=== PATIENT | female | born 1945 | race Caucasian/White ===

== ENCOUNTER 2016-09-23 12:17 | Outpatient (CLI) | payer MEDICARE | END 2016-09-23 12:18 | disposition home or self-care (01) | DX: R53.83 Other fatigue (principal); R00.2 Palpitations; C81.70 Other Hodgkin lymphoma, unspecified site ==

== ENCOUNTER 2017-01-29 07:27 | Outpatient (CLI) | payer MEDICARE | END 2017-01-29 07:28 | disposition home or self-care (01) | DX: E78.2 Mixed hyperlipidemia (principal); I10 Essential (primary) hypertension; E55.9 Vitamin D deficiency, unspecified; C85.90 Non-Hodgkin lymphoma, unspecified, unspecified site ==

== ENCOUNTER 2017-03-09 08:05 | Outpatient (CLI) | payer MEDICARE ==
--- NOTE | 2017-03-09 14:45 | DEXA Report ---
DEXA SCAN: 03/09/2017 CLINICAL INDICATION: Postmenopausal. TECHNIQUE: Dual energy x-ray absorptiometry (DXA) was performed on a [employer] system. Regions measured are the AP spine, femoral neck, and, if needed, forearm. COMPARISON: None. In accordance with the International Society for Clinical Densitometry (ISCD) guidelines, data from previous exams may be reanalyzed using current recommendations and techniques. This is done to allow a more accurate basis for comparison with the current study. FINDINGS: The data for the lumbar spine is as follows: REGION BMD (g/cm/cm) T-SCORE Z-SCORE L1 0.927 -1.7 -1.1 L2 1.124 -0.6 0.0 L3 1.249 0.4 1.0 L4 1.299 0.8 1.5 TOTAL 1.157 -0.2 0.4 NOTE: All evaluable vertebrae are used for classification. The data for the hip is as follows: REGION BMD (g/cm/cm) T-SCORE Z-SCORE Neck 0.872 -1.2 -0.1 TOTAL 1.136 1.0 1.8 NOTE: The femoral neck or total proximal femur, whichever is lowest, is used for classification. IMPRESSION: THE WHO CLASSIFICATION BASED ON THE INTERNATIONAL REFERENCE STANDARD IS OSTEOPENIA (REFERENCE LEFT FEMORAL NECK). THE FRACTURE RISK IS INCREASED. RECOMMENDATION: Patients with diagnosis of osteoporosis or osteopenia should have regular bone mineral density assessment. For those eligible for Medicare, routine testing is allowed once every 2 years. Testing frequency can be increased for patients who have rapidly progressing disease or for those who are receiving medical therapy to restore bone mass. COMMENT: World Health Organization (WHO) definitions for osteoporosis and osteopenia: NORMAL BMD: T-score at -1.0 or higher, fracture risk is low. OSTEOPENIA BMD: T-score between -1.0 and -2.5, fracture risk is increased. OSTEOPOROSIS BMD: T-score at -2.5 or lower, fracture risk high. National Osteoporosis Foundation recommends: 1. Obtain adequate dietary calcium (at least 1200 mg per day) and vitamin D (400 -800 international units per day). 2. Participate, as appropriate, in regular weightbearing and muscle- strengthening exercise. 3. Avoid tobacco use and reduce alcohol and caffeine intake. 4. For more detailed information see the website at www.NOF.org. MTDD
== END 2017-03-09 08:06 | disposition home or self-care (01) ==
LOC: DI 08:05
PROVIDERS: ATTEND Physician Assistant Medical
DX: Z13.820 Encounter for screening for osteoporosis (principal); M85.88 Other specified disorders of bone density and structure, other site; Z78.0 Asymptomatic menopausal state
CPT/HCPCS: 77080

== ENCOUNTER 2017-03-09 08:06 | Outpatient (CLI) | payer MEDICARE ==
--- NOTE | 2017-03-11 08:14 | Mammography Report ---
DIGITAL SCREENING MAMMOGRAM: 03/09/2017 CLINICAL INDICATION: A 71-year-old with history of lymphoma left breast for screening. COMPARISON: 02/2016, 02/2015, 02/2014, 02/2013, 02/2012, 02/2011, 07/2009, 07/2008 TECHNIQUE: Routine CC and MLO projections were obtained of the breasts. FINDINGS: The breasts again demonstrate scattered fibroglandular densities bilaterally. Biopsy phu er in the left upper central breast is stable. There is a possible new nodule in the left lower cent ral breast. There is possible new architectural distortion in the right outer breast. Further evalu ation with bilateral spot compression views and possible ultrasound is recommended. IMPRESSION: INCOMPLETE EXAMINATION. RECOMMENDATION: Additional evaluation of both breasts as above. BIRADS CATEGORY 0 - INCOMPLETE. STANDARD QUALIFYING STATEMENTS 1. This examination was reviewed with the aid of Computer-Aided Detection (CAD). 2. A negative or benign imaging report should not delay biopsy if clinically suspicious findings are present. Consider surgical consultation if warranted. More than 5% of cancers are not identified by i maging. 3. Dense breasts may obscure an underlying neoplasm. JOB #: [id number] EXT JOB #:[id number]
== END 2017-03-09 08:07 | disposition home or self-care (01) ==
LOC: DI 08:06
PROVIDERS: ATTEND Physician Assistant Medical
DX: Z12.31 Encounter for screening mammogram for malignant neoplasm of breast (principal); R92.8 Other abnormal and inconclusive findings on diagnostic imaging of breast
CPT/HCPCS: 77067

== ENCOUNTER 2017-03-25 10:59 | Outpatient (CLI) | payer MEDICARE ==
--- NOTE | 2017-03-25 14:18 | Ultrasound Report ---
LEFT BREAST ULTRASOUND: 03/25/2017 CLINICAL INDICATION: Persistent nodule left breast. TECHNIQUE: Real-time scanning was performed with pharmaceutical sales representative static images obtained. FINDINGS: Ultrasound of the left lower central breast was performed. At the 6 o'clock position, 4 cm from the nipple, there is a 0.8 x 0.7 x 0.4 cm nodule with irregular margins. No definite associated vascularity is seen. The appearance is suspicious. Biopsy is recommen ded. The nodule appears amenable to ultrasound-guided core needle biopsy. IMPRESSION: SUSPICIOUS ABNORMALITY, WITH A SOLID NODULE CORRELATING WITH THE MAMMOGRAPHIC ABNORMALIT Y. RECOMMENDATION: BIOPSY. THE NODULE APPEARS AMENABLE TO ULTRASOUND-GUIDED CORE NEEDLE BIOPSY. BIRADS CATEGORY 4-SUSPICIOUS ABNORMALITY. Results and recommendations discussed with the patient at the time of the examination, and called to Veronique Butler PA-C, on 03/25/2017. Biopsy is scheduled for 04/08/2017 at 12:15 p.m. JOB #: [id number] EXT JOB #:[id number]
--- NOTE | 2017-03-25 15:18 | Mammography Report ---
DIGITAL DIAGNOSTIC BILATERAL MAMMOGRAM: 03/25/2017 CLINICAL INDICATION: Possible right distortion, left nodule on screening. TECHNIQUE: Bilateral true lateral and spot compression views. COMPARISON: 03/09/2017, 03/17/2016, 03/06/2015, 03/28/2014, 03/07/2013, 2011, 03/22/2012, 04/01/2011, 03/26/2011, 08/08/2009, 07/20/2008. FINDINGS: The breasts again demonstrate scattered fibroglandular densities bilaterally. The possible distortion in the right outer breast does not persist on additional compression. No underlying mass lesion is identified. The nodule in the left inferior breast persists on additional compression, measuring 9 mm. No associated calcifications are seen. Please also refer to left breast ultrasound of the same day. IMPRESSION: SUSPICIOUS ABNORMALITY, WITH A SOLID NODULE ON ULTRASOUND CORRELATING WITH THE LEFT MAMMOGRAPHIC ABNORMALITY. RECOMMENDATION: BIOPSY. THE NODULE APPEARS AMENABLE TO ULTRASOUND-GUIDED CORE NEEDLE BIOPSY. BIRADS CATEGORY 4-SUSPICIOUS ABNORMALITY. Results and recommendations discussed with the patient and called to Veronique Butler PA-C, on 03/25/2017. Biopsy is scheduled for 04/08/2017 at 12:15 p.m. STANDARD QUALIFYING STATEMENTS 1. This examination was reviewed with the aid of Computer-Aided Detection (CAD). 2. A negative or benign imaging report should not delay biopsy if clinically suspicious findings are present. Consider surgical consultation if warranted. More than 5% of cancers are not identified by imaging. 3. Dense breasts may obscure an underlying neoplasm. JOB #: [id number] EXT JOB #: [id number] [facility]ITAL[facility]
== END 2017-03-25 11:00 | disposition home or self-care (01) ==
LOC: DI 10:59
PROVIDERS: ATTEND Physician Assistant Medical
DX: N63 Unspecified lump in breast (principal)
CPT/HCPCS: 76642; G0204; 77066

== ENCOUNTER 2017-04-08 12:00 | Outpatient (CLI) | payer MEDICARE ==
[2017-04-08] MEDS ORDERED: BUFFERED LIDOCAINE 10 ML SYRINGE IU ONE (12:53)
[2017-04-08] MEDS ORDERED: BUPIVACAINE 0.5%-EPI 1:200000 PF 30 ML VIAL SUBQ ONE (12:53)
[2017-04-08 14:27] VITALS: BP 146/65
--- NOTE | 2017-04-09 08:33 | Ultrasound Report ---
ULTRASOUND-GUIDED CORE NEEDLE BIOPSY LEFT BREAST: 04/08/2017 CLINICAL INDICATION: A 7 mm nodule 6 o'clock position left breast. FINDINGS: Informed consent was obtained. Using standard aseptic technique, both 1% buffered lidocain e and Marcaine were injected into the left breast for local anesthesia. A small amara was made in the skin with a #11 blade. A 12-gauge Celero vacuum-assisted device was used to obtain three specimens. A Celero marker was placed into the biopsy cavity under ultrasound guidance. The patient was taken to a separate mammography machine and a two view digital mammogram was performed, documenting the marke r in the expected location and a small postbiopsy hematoma. The wound was dressed and ice applied. The patient was observed for approximately 15 minutes, then wa s discharged from [facility] in stable condition following instructions on wound care and obt aining biopsy results. The tissue was sent for histologic analysis. IMPRESSION: ULTRASOUND-GUIDED BIOPSY OF THE LEFT BREAST. AN ADDENDUM WILL BE MADE TO THIS REPORT WHEN PATHOLOGY IS REVIEWED TO ESTABLISH CONCORDANCE. JOB #: [id number] EXT JOB #:[id number]
== END 2017-04-08 12:01 | disposition home or self-care (01) ==
LOC: DI 12:00
PROVIDERS: ATTEND Physician Assistant Medical
DX: N63 Unspecified lump in breast (principal); R92.8 Other abnormal and inconclusive findings on diagnostic imaging of breast; L85.9 Epidermal thickening, unspecified
CPT/HCPCS: 19083; G0206; 88305

== ENCOUNTER 2017-06-03 08:20 | Outpatient (CLI) | payer MEDICARE ==
[2017-06-03 12:51] LABS: ALBUMIN/GLOBULIN RATIO 1.7 (1.0-2.2); BILIRUBIN,TOTAL 0.7 mg/dL (0.2-1.0); CALCIUM 9.4 mg/dL (8.5-10.3); CREATININE 1.2 mg/dL (0.4-1.0); POTASSIUM 4.1 mmol/L (3.5-5.0); TOTAL PROTEIN 6.7 g/dL (6.7-8.2)
[2017-06-03 13:04] LABS: HEMOGLOBIN A1C 0.52 g/dL
== END 2017-06-03 08:21 | disposition home or self-care (01) ==
LOC: LAB.F 08:20
PROVIDERS: ATTEND Internal Medicine
DX: N18.9 Chronic kidney disease, unspecified (principal); R73.09 Other abnormal glucose
CPT/HCPCS: 36415; 80053; 83036

== ENCOUNTER 2017-07-30 07:22 | Outpatient (CLI) | payer MEDICARE ==
[2017-07-30 11:43] LABS: BASOPHILS % (AUTO) 0.5 %; EOSINOPHILS # (AUTO) 0.2 10^3/uL (0.0-0.7); EOSINOPHILS % (AUTO) 2.5 %; HCT - HEMATOCRIT 39.9 % (37.0-47.0); HGB - HEMOGLOBIN 13.3 g/dL (12.0-16.0); LYMPHOCYTES # (AUTO) 2.3 10^3/uL (1.5-3.5); LYMPHOCYTES % (AUTO) 34.6 %; MEAN CORPUSCULAR HEMOGLOBIN 29.4 pg (27.0-31.0); MEAN CORPUSCULAR HGB CONC 33.4 g/dL (32.0-36.0); MEAN CORPUSCULAR VOLUME 88.1 fL (81.0-99.0); MONOCYTES # (AUTO) 0.8 10^3/uL (0.0-1.0); MONOCYTES % (AUTO) 12.1 %; NEUTROPHILS # (AUTO) 3.3 10^3/uL (1.5-6.6); NEUTROPHILS % (AUTO) 50.3 %; RED BLOOD COUNT 4.53 10^6/uL (4.20-5.40); RED CELL DISTRIBUTION WIDTH 13.6 % (12.0-15.0); UNCORRECTED WHITE BLOOD COUNT 6.5 x10^3/uL; WHITE BLOOD COUNT 6.5 x10^3/uL (4.8-10.8)
== END 2017-07-30 07:23 | disposition home or self-care (01) ==
LOC: LAB.F 07:22
PROVIDERS: ATTEND Internal Medicine
DX: R53.83 Other fatigue (principal)
CPT/HCPCS: 36415; 84443; 85025

== ENCOUNTER 2017-07-31 12:51 | Outpatient (CLI) | payer MEDICARE | END 2017-07-31 12:52 | disposition home or self-care (01) | LOC: DI 12:51 | PROVIDERS: ATTEND Internal Medicine | DX: R00.2 Palpitations (principal); R53.83 Other fatigue; I10 Essential (primary) hypertension | CPT/HCPCS: 93306 ==

== ENCOUNTER 2017-10-21 13:53 | Outpatient (CLI) | payer MEDICARE ==
--- NOTE | 2017-10-21 14:51 | Mammography Report ---
DIAGNOSTIC LEFT MAMMOGRAM: 10/21/2017 CLINICAL INDICATION: History of benign biopsy. COMPARISON: 04/08/2017, 03/25/2017, 03/09/2017 03/17/2016, 03/06/2015, 03/28/2014, 03/07/2013, 03/29/2012, 03/22/2012, 03/26/2011. TECHNIQUE: Left CC, MLO, true lateral views. FINDINGS: The left breast demonstrates scattered fibroglandular densities. Coarse and punctate, typically benign calcifications are present. Biopsy marker in the inferior left breast is stable. Associated nodule has resolved in the interval. Biopsy marker in the left upper central breast is stable. No suspicious masses, clustered microcalcifications, or regions of architectural distortion are identified. IMPRESSION: BENIGN FINDINGS. RECOMMENDATION: Routine annual screening, next due in February 2018, unless otherwise clinically indicated. BIRADS CATEGORY 2 - benign findings. STANDARD QUALIFYING STATEMENTS: 1. This examination was reviewed with the aid of Computer-Aided Detection (CAD). 2. A negative or benign imaging report should not delay biopsy if clinically suspicious findings are present. Consider surgical consultation if warranted. More than 5% of cancers are not identified by imaging. 3. Dense breasts may obscure an underlying neoplasm. TD: 10/21/2017 14:45
== END 2017-10-21 13:54 | disposition home or self-care (01) ==
LOC: DI 13:53
PROVIDERS: ATTEND Internal Medicine
DX: R92.8 Other abnormal and inconclusive findings on diagnostic imaging of breast (principal)

== ENCOUNTER 2018-02-13 05:48 | Emergency (ER) | payer MEDICARE ==
--- NOTE | 2018-02-13 06:20 | ED Physician Documentation ---
History of Present Illness - Stated complaint Stated Complaint: R SHOULDER/NECK PX - Chief complaint Chief Complaint: Ext Problem - History obtained from History obtained from: Patient - History of Present Illness Timing: How many days ago (2-3) Pain level now: 5 Improved by: no ameliorating factors Worsened by: no exacerbating factors - Additonal information Additional information: patient complains of two or three days of pain in her right shoulder, right aspect of neck, and RUE to FA. noted rash this morning Review of Systems Constitutional: reports: Reviewed and negative Cardiac: reports: Reviewed and negative Respiratory: reports: Reviewed and negative Skin: reports: Rash Musculoskeletal: reports: Neck pain, Joint pain PD PAST MEDICAL HISTORY - Past Medical History Past Medical History: Yes Cardiovascular: Hypertension, High cholesterol Respiratory: None Endocrine/Autoimmune: None GI: None : None HEENT: Chronic vision loss Psych: None Musculoskeletal: Osteoarthritis Derm: None - Past Surgical History Past Surgical History: Yes General: Cholecystectomy Derm: Other - Present Medications Home Medications: Ambulatory Orders Medication Instructions Recorded Confirmed Acetaminophen [Pain Reliever] 325 mg PO Q4HR PRN 03/07/13 02/13/18 Lisinopril [Zestril] 10 mg PO DAILY 03/07/13 02/13/18 Pravastatin Sodium [Pravachol] 40 mg PO HS 03/07/13 02/13/18 Cholecalciferol (Vitamin D3) 5,000 units PO DAILY 05/08/14 02/13/18 [Vitamin D3] Acyclovir 800 mg PO 5XD #34 tablet 02/13/18 oxyCODONE [Roxicodone] 5 mg PO Q4-6H PRN #14 tablet 02/13/18 - Allergies Allergies/Adverse Reactions: Allergies Allergy/AdvReac Type Severity Reaction Status Date / Time penicillin G Allergy Intermediate Rash Verified 02/13/18 05:54 - Social History Does the pt smoke?: No Smoking Status: Never smoker Does the pt drink ETOH?: No Does the pt have substance abuse?: No - Immunizations Immunizations are current?: Yes - POLST Patient has POLST: No PD ED PE NORMAL - Vitals Vital signs reviewed: Yes - General General: Alert and oriented X 3, No acute distress, Well developed/nourished - Neck Neck: Supple, no meningeal sign, No bony TTP - Respiratory Respiratory: No respiratory distress, Clear bilaterally - Extremities Extremities: No edema PD ED PE EXPANDED - Derm SKin visual: 1 - rash (clusters of erythematous papulovesicular exanthem) Results - Vitals Vitals: Vital Signs - 24 hr 02/13/18 02/13/18 05:51 06:44 Temperature 36.7 C 36.7 C Heart Rate 70 66 Respiratory 18 18 Rate Blood Pressure 133/62 H 126/88 H O2 Saturation 100 100 Oxygen O2 Source Room air PD MEDICAL DECISION MAKING - ED course Complexity details: considered differential, d/w patient - Sepsis Event Vital Signs: Vital Signs - 24 hr 02/13/18 02/13/18 05:51 06:44 Temperature 36.7 C 36.7 C Heart Rate 70 66 Respiratory 18 18 Rate Blood Pressure 133/62 H 126/88 H O2 Saturation 100 100 Oxygen O2 Source Room air Departure - Departure Disposition: 01 Home, Self Care Clinical Impression: Shingles Condition: Good Instructions: ED Shingles Prescriptions: Acyclovir 800 mg PO 5XD #34 tablet oxyCODONE [Roxicodone] 5 mg PO Q4-6H PRN #14 tablet PRN Reason: Pain Discharge Date/Time: 02/13/18 06:44
[2018-02-13] MEDS ORDERED: ACYCLOVIR 200 MG CAPSULE PO STA (06:30)
[2018-02-13 06:46] VITALS: BP 126/88
== END 2018-02-13 06:44 | disposition home or self-care (01) ==
LOC: ED 05:48
DX: B02.9 Zoster without complications (principal); I10 Essential (primary) hypertension; E78.00 Pure hypercholesterolemia, unspecified; M19.90 Unspecified osteoarthritis, unspecified site
CPT/HCPCS: 99283; A9270

== ENCOUNTER 2018-06-02 07:44 | Outpatient (CLI) | payer MEDICARE ==
[2018-06-02 11:09] LABS: BASOPHILS % (AUTO) 0.6 %; EOSINOPHILS # (AUTO) 0.1 10^3/uL (0.0-0.7); EOSINOPHILS % (AUTO) 2.4 %; HGB - HEMOGLOBIN 12.8 g/dL (12.0-16.0); LYMPHOCYTES # (AUTO) 1.8 10^3/uL (1.5-3.5); MEAN CORPUSCULAR HEMOGLOBIN 30.2 pg (27.0-31.0); MEAN CORPUSCULAR HGB CONC 34.1 g/dL (32.0-36.0); MEAN CORPUSCULAR VOLUME 88.6 fL (81.0-99.0); MEAN PLATELET VOLUME 11.1 fL (7.9-10.8); MONOCYTES # (AUTO) 0.6 10^3/uL (0.0-1.0); MONOCYTES % (AUTO) 11.8 %; NEUTROPHILS # (AUTO) 2.8 10^3/uL (1.5-6.6); NEUTROPHILS % (AUTO) 52.2 %; PLT - PLATELET COUNT 58 10^3/uL (130-450); RED BLOOD COUNT 4.23 10^6/uL (4.20-5.40); RED CELL DISTRIBUTION WIDTH 13.3 % (12.0-15.0); WHITE BLOOD COUNT 5.4 x10^3/uL (4.8-10.8)
[2018-06-02 11:22] LABS: ALBUMIN 4.6 g/dL (3.2-5.5); ALBUMIN/GLOBULIN RATIO 1.7 (1.0-2.2); ALKALINE PHOSPHATASE 71 IU/L (42-121); ALT ALANINE AMINOTRANSFERASE 25 IU/L (10-60); AST ASPARTATE AMINOTRANSFERASE 25 IU/L (10-42); BILIRUBIN,TOTAL 0.7 mg/dL (0.2-1.0); BUN - BLOOD UREA NITROGEN 23 mg/dL (6-20); CALCIUM 9.6 mg/dL (8.5-10.3); CARBON DIOXIDE - CO2 26 mmol/L (21-32); CHLORIDE 103 mmol/L (101-111); CHOLESTEROL 183 mg/dL; CREATININE 1.2 mg/dL (0.4-1.0); GFR - MDRD 44 (>89); GLUCOSE 109 mg/dL (70-100); HDL CHOLESTEROL 62 mg/dL; LDL CHOLESTEROL,CALCULATED 90 mg/dL; LDL/HDL RATIO 1.5 (<4.4); SODIUM 138 mmol/L (135-145); TOTAL PROTEIN 7.3 g/dL (6.7-8.2); VLDL CHOLESTEROL 31 mg/dL
== END 2018-06-02 07:45 | disposition home or self-care (01) ==
LOC: LAB.F 07:44
PROVIDERS: ATTEND Physician Assistant Medical
DX: E55.9 Vitamin D deficiency, unspecified (principal); Z79.899 Other long term (current) drug therapy; N18.9 Chronic kidney disease, unspecified; R73.01 Impaired fasting glucose; I10 Essential (primary) hypertension; E78.2 Mixed hyperlipidemia
CPT/HCPCS: 36415; 80053; 80061; 82306; 83721; 84443; 85025

== ENCOUNTER 2018-06-07 14:32 | Outpatient (CLI) | payer MEDICARE ==
[2018-06-07 18:39] LABS: BASOPHILS % (AUTO) 0.6 %; EOSINOPHILS # (AUTO) 0.1 10^3/uL (0.0-0.7); EOSINOPHILS % (AUTO) 2.1 %; LYMPHOCYTES # (AUTO) 1.8 10^3/uL (1.5-3.5); LYMPHOCYTES % (AUTO) 32.2 %; MEAN CORPUSCULAR HEMOGLOBIN 29.8 pg (27.0-31.0); MEAN CORPUSCULAR HGB CONC 33.5 g/dL (32.0-36.0); MEAN CORPUSCULAR VOLUME 88.7 fL (81.0-99.0); MEAN PLATELET VOLUME 10.7 fL (7.9-10.8); MONOCYTES % (AUTO) 18.7 %; NEUTROPHILS # (AUTO) 2.6 10^3/uL (1.5-6.6); NEUTROPHILS % (AUTO) 46.4 %; PLT - PLATELET COUNT 50 10^3/uL (130-450); RED BLOOD COUNT 4.35 10^6/uL (4.20-5.40); RED CELL DISTRIBUTION WIDTH 13.1 % (12.0-15.0); WHITE BLOOD COUNT 5.6 x10^3/uL (4.8-10.8)
[2018-06-07 18:44] LABS: GLUCOSE, URINE (UA) NEGATIVE (NEGATIVE); KETONES,URINE (UA) TRACE mg/dL (NEGATIVE); LEUKOCYTE ESTERASE, URINE NEGATIVE (NEGATIVE); NITRITE,URINE NEGATIVE (NEGATIVE); OCCULT BLOOD,URINE NEGATIVE (NEGATIVE); PH,URINE 5.5 PH (5.0-7.5); PROTEIN,URINE NEGATIVE (NEGATIVE); UROBILINOGEN,URINE 0.2 (NORMAL) E.U./dL (NORMAL)
[2018-06-07 18:48] LABS: BILIRUBIN,URINE NEGATIVE (NEGATIVE); CLARITY,URINE CLEAR (CLEAR); ICTOTEST,URINE NEGATIVE
[2018-06-08 12:42] LABS: HEPATITIS C ANTIBODY NON-REACTIVE (NON-REACTIVE)
== END 2018-06-07 14:33 | disposition home or self-care (01) ==
LOC: LAB.R 14:32
PROVIDERS: ATTEND Physician Assistant Medical
DX: D69.6 Thrombocytopenia, unspecified (principal); Z13.818 Encounter for screening for other digestive system disorders; N18.9 Chronic kidney disease, unspecified
CPT/HCPCS: 81001; 81003; 85025; 86803; 87086

== ENCOUNTER 2018-06-21 14:48 | Outpatient (CLI) | payer MEDICARE ==
--- NOTE | 2018-06-23 09:59 | Mammography Report ---
Reason: BILAT SCREEN w BRANDON Procedure Date: 06/21/2018 Accession Number: [id number] / [id number] Procedure: GIN - Screening Mammo w/Brandon CPT Code: FULL RESULT: EXAM: Screening Mammo w/Brandon DATE: 06/21/2018 3:09 PM CLINICAL HISTORY: BILAT SCREEN w BRANDON TECHNIQUE: Bilateral CC and MLO breast views COMPARISON: Mammogram 10/21/2017 FINDINGS: There are scattered fibroglandular densities. There are benign-appearing calcifications. No dominant mass, architectural distortion, or concerning cluster microcatheter calcifications is seen. IMPRESSION: BI-RADS Category 2. Benign findings. Recommend annual screening mammogram. STANDARD QUALIFYING STATEMENTS: 1. This examination was not reviewed with the aid of Computer-Aided Detection (CAD). 2. A negative or benign imaging report should not delay biopsy if clinically suspicious findings are present. Consider surgical consultation if warrented. More than 5% of cancers are not identified by imaging. 3. Dense breasts may obscure an underlying neoplasm. 4. This examination was reviewed with the aid of 3D breast imaging (tomosynthesis).
== END 2018-06-21 14:49 | disposition home or self-care (01) ==
LOC: DI 14:48
PROVIDERS: ATTEND Physician Assistant Medical
DX: Z12.31 Encounter for screening mammogram for malignant neoplasm of breast (principal)
CPT/HCPCS: 77063; 77067

== ENCOUNTER 2018-06-21 14:49 | Outpatient (CLI) | payer MEDICARE ==
--- NOTE | 2018-06-22 10:51 | Ultrasound Report ---
Reason: THROMBOCYTOPENIA, LYMPHOMA, CKD STAGE 3 Procedure Date: 06/21/2018 Accession Number: [id number] / [id number] Procedure: US - Abdomen Complete CPT Code: FULL RESULT: EXAM: ABDOMEN ULTRASOUND EXAM DATE: 06/21/2018 05:18 PM. CLINICAL HISTORY: Thrombocytopenia, lymphoma, CKD stage 3. COMPARISON: PET CT SKULL BASE TO MID THIGH 12/08/2016 10:28 AM ABDOMEN/PELVIS W/ 08/05/2016 11:[address] SKULL BASE TO M 12/08/2016 9:37 AM. TECHNIQUE: Real-time scanning was performed with static images obtained. FINDINGS: Liver: Liver parenchyma is heterogeneous and moderately hyperechoic. Evaluation of the liver parenchyma is limited due to hyperechoic liver parenchyma. In the right liver, there is an oblong hyperechoic region with some degree of shadowing but no vascularity measuring 1.9 x 0.9 x 1.4 cm. This finding is present in the subcapsular right liver. 15.8 cm. Main portal vein flow: Hepatopetal. Gallbladder: Surgically absent. Biliary System: Common bile duct measures 8.8 mm. No intrahepatic or extrahepatic ductal dilatation. Pancreas: Not well seen due to bowel gas and fatty liver. Kidneys: Bilateral renal cortical thinning. Right: 9.2 cm longitudinally. Normal. No contour-deforming mass, stones, or hydronephrosis. Left: 10.5 cm longitudinally. Normal. No contour-deforming mass, stones, or hydronephrosis. Spleen: 12.2 x 4.8 x 4.9 cm. Normal in size and echotexture. Aorta and Inferior Vena Cava: Unremarkable. Other: Study limited by body habitus and bowel gas. IMPRESSION: 1. Moderately fatty liver. 1.9 x 0.9 x 1.4 cm echogenic, avascular region in the subcapsular right liver. No accompanying CT abnormality seen on the studies performed 12/08/2016 or 08/05/2016. Potentially, this could represent dystrophic calcifications. Further evaluation with contrast-enhanced CT or MRI can be performed as necessary. No intrahepatic bile duct dilation. 2. Gallbladder surgically absent. Prominent common bile duct measuring 8.8 mm. No common bile duct stone. Limited visualization of the otherwise grossly unremarkable pancreas. 3. Bilateral renal cortical thinning. No mass. RADIA
== END 2018-06-21 14:50 | disposition home or self-care (01) ==
LOC: DI 14:49
PROVIDERS: ATTEND Physician Assistant Medical
DX: K76.0 Fatty (change of) liver, not elsewhere classified (principal); Z90.49 Acquired absence of other specified parts of digestive tract
CPT/HCPCS: 76700

== ENCOUNTER 2019-05-06 16:11 | Outpatient (CLI) | payer MEDICARE | END 2019-05-06 16:12 | disposition home or self-care (01) | LOC: RT 16:11 | PROVIDERS: ATTEND Internal Medicine Gastroenterology | DX: I48.0 Paroxysmal atrial fibrillation (principal) | CPT/HCPCS: 93005 ==

== ENCOUNTER 2019-05-07 09:41 | Outpatient (CLI) | payer MEDICARE ==
[2019-05-07 10:18] LABS: BASOPHILS % (AUTO) 0.6 %; EOSINOPHILS # (AUTO) 0.2 10^3/uL (0.0-0.7); EOSINOPHILS % (AUTO) 3.7 %; HGB - HEMOGLOBIN 12.1 g/dL (12.0-16.0); LYMPHOCYTES # (AUTO) 1.5 10^3/uL (1.5-3.5); LYMPHOCYTES % (AUTO) 29.8 %; MEAN CORPUSCULAR HEMOGLOBIN 26.8 pg (27.0-31.0); MEAN CORPUSCULAR HGB CONC 31.8 g/dL (32.0-36.0); MEAN CORPUSCULAR VOLUME 84.3 fL (81.0-99.0); MEAN PLATELET VOLUME 10.6 fL (7.9-10.8); MONOCYTES # (AUTO) 0.8 10^3/uL (0.0-1.0); MONOCYTES % (AUTO) 16.4 %; NEUTROPHILS # (AUTO) 2.5 10^3/uL (1.5-6.6); NEUTROPHILS % (AUTO) 49.1 %; PLT - PLATELET COUNT 102 10^3/uL (130-450); RED BLOOD COUNT 4.51 10^6/uL (4.20-5.40); RED CELL DISTRIBUTION WIDTH 14.5 % (12.0-15.0); WHITE BLOOD COUNT 5.1 x10^3/uL (4.8-10.8)
[2019-05-07 10:32] LABS: ALBUMIN 4.1 g/dL (3.2-5.5); ALBUMIN/GLOBULIN RATIO 1.5 (1.0-2.2); BILIRUBIN,TOTAL 0.9 mg/dL (0.2-1.0); CREATININE 1.2 mg/dL (0.4-1.0); TOTAL PROTEIN 6.8 g/dL (6.7-8.2)
--- NOTE | 2019-05-08 15:49 | CT Report ---
Reason: HX OF NON HODGKIN LYMPHOMA Procedure Date: 05/07/2019 Accession Number: [id number] / [id number] Procedure: CT - SOFT TISSUE NECK W CPT Code: FULL RESULT: EXAM: CT SOFT TISSUE NECK WITH CONTRAST. EXAM DATE: 05/07/2019 11:16 AM. HISTORY: History of non-Hodgkin lymphoma. No onset weight loss. COMPARISONS: Concurrent CT scan chest abdomen pelvis, prior PET/CT imaging study 12/08/2016. TECHNIQUE: Routine soft tissue neck CT protocol. Reconstructions: Coronal and sagittal. IV contrast: OPTI 320 80ML. In accordance with CT protocol optimization, one or more of the following dose reduction techniques were utilized for this exam: automated exposure control, adjustment of mA and/or KV based on patient size, or use of iterative reconstructive technique. Findings: Relevant images are indicated (image number, series number). Limited evaluation intracranial contents are unremarkable. Again seen 2.1 cm right parotid mass, present previously by PET CT imaging study 12/08/2016. Diffuse adenopathy bilateral neck, all spaces, airway patent, prominent bilateral supraclavicular fossa adenopathy present. Findings are progressive since prior PET/CT imaging study which included views of the neck soft tissues. Subcutaneous low-density mass seen previously by PET CT imaging study overlying the right shoulder at that time measured 2.1 cm, appears smaller now measuring 1.2 cm with minimal residual low density component suggestive of a drained sebaceous cyst. Impressions: 1. Progressive diffuse adenopathy of the neck consistent with progressive lymphoma compared with PET/CT imaging study 12/08/2016 as described. 2. Suspected benign mass of the right parotid gland, stable since 2017. RADIA
--- NOTE | 2019-05-10 01:48 | CT Report ---
Reason: HX OF NON HODGKIN LYMPHOMA Procedure Date: 05/07/2019 Accession Number: [id number] / [id number] Procedure: CT - Abdomen/Pelvis W CPT Code: FULL RESULT: EXAM: CT ABDOMEN AND PELVIS EXAM DATE: 05/07/2019 11:16 AM. CLINICAL HISTORY: HX OF NON HODGKIN LYMPHOMA. COMPARISONS: ABDOMEN/PELVIS W/ 08/05/2016 11:[address] SKULL BASE TO M 12/08/2016 9:37 AM. TECHNIQUE: Routine helical CT imaging was performed through the abdomen and pelvis. IV contrast: OPTI 320 80ML. Enteric contrast: Yes. Reconstructions: Coronal and sagittal. In accordance with CT protocol optimization, one or more of the following dose reduction techniques were utilized for this exam: automated exposure control, adjustment of mA and/or KV based on patient size, or use of iterative reconstructive technique. FINDINGS: Lung Bases: There is minimal interstitial infiltrate in the region of the lingula. There are no pleural effusions at the lung bases. There are borderline sized lymph nodes in the right hilum and middle mediastinum. These were incompletely evaluated on the CT scan of the abdomen. Liver: The liver is grossly unremarkable. Gallbladder/Bile Ducts: Resected Spleen: There is splenomegaly when compared to the prior PET/CT study. The spleen measures 18.5 so meters anteriorly posteriorly, 10.7 cm transversely, and 17.7 on meters. Inferiorly. Pancreas: Normal. Adrenal Glands: Normal. Kidneys: Normal. No masses or hydronephrosis. Peritoneal Cavity/Bowel: There is lymphadenopathy in the yajaira hepatis and paraceliac region. These lymph nodes measure up to 18 mm in short axis diameter. There is para-aortic and paracaval lymphadenopathy also new compared to the prior study. These lymph nodes measure up to 24 mm in short axis diameter. There is by iliac and inguinal lymphadenopathy. These lymph nodes measure up to 25 mm in short axis diameter. The stomach, small bowel, and colon are unremarkable. The appendix is normal. Pelvic Organs: Normal. The bladder and visualized pelvic organs are within normal limits. Vasculature: No aneurysms or other significant abnormality. Bones: There are degenerative changes of the spine and the hips. Other: None. IMPRESSION: 1. Interval development of abdominal, pelvic, and inguinal lymphadenopathy. 2. Splenomegaly. 3. Prior cholecystectomy. 4. No inflammatory changes of the bowel. RADIA
--- NOTE | 2019-05-10 15:26 | CT Report ---
Reason: HX OF NON HODGKIN LYMPHOMA Procedure Date: 05/07/2019 Accession Number: [id number] / [id number] Procedure: CT - CHEST W CPT Code: FULL RESULT: EXAM: CT CHEST EXAM DATE: 05/07/2019 11:16 AM. CLINICAL HISTORY: History of non-Hodgkin's lymphoma. New onset weight loss. COMPARISONS: CHEST W/ 11/28/2016 6:[address] SKULL BASE TO M 12/08/2016 9:37 AM. TECHNIQUE: Routine helical CT imaging was performed through the chest. IV contrast: 80 cc of Optiray 320. Reconstructions: Coronal and sagittal. In accordance with CT protocol optimization, one or more of the following dose reduction techniques were utilized for this exam: automated exposure control, adjustment of mA and/or KV based on patient size, or use of iterative reconstructive technique. FINDINGS: Lungs/Pleura: No endobronchial obstruction. Nodular opacity seen in the posterior right upper lobe on image 16, series 3 measuring 5 mm new in the interval. Subpleural lingular nodule 4 mm, image 35, series 3 new in the interval. Peripheral subpleural lingular and anterior lateral left lower lobe opacities. Focal groundglass opacity and reticulation seen in the peripheral right lower lobe. Right medial inferior lower lobe 6 mm nodule image 54, series 3, new in the interval. In addition, amongst in the groundglass opacity in the right lower lobe is a nodular density seen measuring 4 mm image 56, series 3 and also on image 42, series 3 in the right lower lobe. Mediastinum: Visualized thyroid gland is unremarkable. Enlarged bilateral inferior cervical lymph nodes are seen the largest on the right measuring 2.5 x 1.2 cm on image 1, series 2. Enlarged bilateral axillary lymph nodes the largest on the right measuring 2.8 x 2.4 cm seen on image 22, series 2 with the axillary adenopathy significantly progressed compared to 11/28/2016. Heart size is normal. Small hiatal hernia. Extensive mediastinal and hilar lymphadenopathy is seen the largest lymph node, right paratracheal confluent measuring 3 x 2.4 cm and subcarinal measuring 3.1 x 2 cm and the largest hilar lymph node is on the left measuring 2.2 x 1.4 cm. Findings have significant knee progress. No mediastinal hematoma. Thoracic aortic calcified plaque. Coronary artery calcified plaque. Bones: Degenerative changes of the thoracic spine. No acute osseous abnormalities. No osseous lesions. Degenerative changes of both shoulders. Visualized Abdomen: Included portions of liver are unremarkable. Status post cholecystectomy. Spleen is enlarged measuring AP extent 18.6 cm where visualized. Included portions of the kidneys, pancreas and adrenals are unremarkable. There is gastrohepatic and yajaira hepatis lymphadenopathy seen better on the CT of the abdomen and pelvis. Splenic vein is prominent. Other: None. IMPRESSION: 1. Extensive inferior cervical, bilateral axillary, mediastinal and hilar lymphadenopathy and upper abdominal adenopathy most likely representing recurrent disease with significant interval progression. 2. Bilateral lung nodules, as described new in the interval and may be due to metastatic disease. 3. Splenomegaly, with an interval significant increase in splenic size. RADIA
== END 2019-05-07 09:42 | disposition home or self-care (01) ==
LOC: LAB 09:41
PROVIDERS: ATTEND Internal Medicine Hematology & Oncology
DX: D69.3 Immune thrombocytopenic purpura (principal); Z85.72 Personal history of non-Hodgkin lymphomas; R59.0 Localized enlarged lymph nodes; R16.1 Splenomegaly, not elsewhere classified; Z90.49 Acquired absence of other specified parts of digestive tract; R91.8 Other nonspecific abnormal finding of lung field
CPT/HCPCS: 36415; 70491; 71260; 74177; 80053; 83615; 85025

== ENCOUNTER 2019-05-10 10:11 | Day surgery (SDC) | payer MEDICARE ==
[2019-05-10] MEDS ORDERED: MIDAZOLAM 2 MG/2 ML VIAL IVP ONE ×2 (10:12)
[2019-05-10] MEDS ORDERED: fentaNYL 250 MCG/5 ML VIAL IVP ONE (10:12)
[2019-05-10] MEDS ORDERED: LACTATED RINGERS 1,000 ML IV ONE (10:35)
[2019-05-10 10:49] LABS: BASOPHILS % (AUTO) 0.7 %; EOSINOPHILS % (AUTO) 1.9 %; HGB - HEMOGLOBIN 12.1 g/dL (12.0-16.0); LYMPHOCYTES % (AUTO) 28.9 %; MEAN CORPUSCULAR HEMOGLOBIN 26.7 pg (27.0-31.0); MEAN CORPUSCULAR HGB CONC 31.9 g/dL (32.0-36.0); MEAN CORPUSCULAR VOLUME 83.7 fL (81.0-99.0); MEAN PLATELET VOLUME 10.9 fL (7.9-10.8); MONOCYTES % (AUTO) 13.6 %; NEUTROPHILS % (AUTO) 54.4 %; PLT - PLATELET COUNT 111 10^3/uL (130-450); RED BLOOD COUNT 4.53 10^6/uL (4.20-5.40); RED CELL DISTRIBUTION WIDTH 14.6 % (12.0-15.0); WHITE BLOOD COUNT 4.1 x10^3/uL (4.8-10.8)
[2019-05-10 11:03] LABS: PLATELET MORPHOLOGY RARE GIANT PLATELETS (NORMAL)
[2019-05-10 11:26] LABS: DIFFERENTIAL COMMENT MANUAL=AUTO DIFF
[2019-05-10] MEDS ORDERED: LIDO GARGLE 30 ML BOTTLE ONE (11:41)
[2019-05-10 14:04] VITALS: BP 130/84
== END 2019-05-10 10:12 | disposition home or self-care (01) ==
LOC: SDS 10:11
PROVIDERS: ATTEND Internal Medicine Gastroenterology
PROC: 0DB48ZX Excision of Esophagogastric Junction, Via Natural or Artificial Opening Endoscopic, Diagnostic (ICD-10-PCS; 2019-05-10)
PROC: 0DBK8ZZ Excision of Ascending Colon, Via Natural or Artificial Opening Endoscopic (ICD-10-PCS; principal; 2019-05-10 11:45)
PROC: 0DB98ZZ Excision of Duodenum, Via Natural or Artificial Opening Endoscopic (ICD-10-PCS; 2019-05-10 11:45)
DX: K22.70 Barrett's esophagus without dysplasia (principal); K26.9 Duodenal ulcer, unspecified as acute or chronic, without hemorrhage or perforation; D12.2 Benign neoplasm of ascending colon; R63.0 Anorexia; K21.9 Gastro-esophageal reflux disease without esophagitis; Z68.32 Body mass index [BMI] 32.0-32.9, adult; D69.3 Immune thrombocytopenic purpura; I48.0 Paroxysmal atrial fibrillation; I47.1 Supraventricular tachycardia; I12.9 Hypertensive chronic kidney disease with stage 1 through stage 4 chronic kidney disease, or unspecified chronic kidney disease; N18.3 Chronic kidney disease, stage 3 (moderate); E78.00 Pure hypercholesterolemia, unspecified; R06.09 Other forms of dyspnea; B02.29 Other postherpetic nervous system involvement; M85.80 Other specified disorders of bone density and structure, unspecified site; H81.09 Meniere's disease, unspecified ear; Z79.52 Long term (current) use of systemic steroids; Z85.72 Personal history of non-Hodgkin lymphomas; Z80.0 Family history of malignant neoplasm of digestive organs
CPT/HCPCS: 36415; 43239; 45380; 85025; A9270; J7120

== ENCOUNTER 2019-06-11 14:07 | Outpatient (CLI) | payer MEDICARE | END 2019-06-11 14:08 | disposition short-term general hospital (02) | LOC: EMS 14:07 | PROVIDERS: ATTEND Surgery | DX: R53.1 Weakness (principal); R53.83 Other fatigue | CPT/HCPCS: A0425; A0429; A0888 ==